=== PATIENT | male | born 1970 | race Caucasian/White ===

== ENCOUNTER 2016-06-14 20:20 | Emergency (ER) | payer BC ==
[~2016-06-14] VITALS: Ht 180.3 cm; Wt 110.7 kg
[~2016-06-14 20:20] MED LIST: BENTYL10 MG PO; LEVAQUIN500 MG PO; MIRALAX255 GM PO
[2016-06-14 21:05] LABS: HEMATOCRIT 43.6 % (38.0-50.0); MCH 30.9 PG (29.0-34.0); MCHC 33.5 G/DL (30.0-36.0); MCV 92.4 FL (86-99); MEAN PLAT.VOLUME 9.8 uM^3 (9.0-12.4); PLATELET COUNT 198 K/uL (156-360); RBC DIS.WIDTH-CV 13.8 % (11.8-14.6); RED BLOOD COUNT 4.72 M/uL (4.00-5.50); WHITE BLOOD COUNT 8.4 K/uL (4.1-10.2)
[2016-06-14 21:22] LABS: CHLORIDE 102 mEq/L (99-109); POTASSIUM 3.9 mEq/L (3.7-5.4); SODIUM 138 mEq/L (136-147)
[2016-06-14 21:24] LABS: GLUCOSE 107 mg/dL (70-99)
[2016-06-14 21:26] LABS: ANION GAP 9 MEQ/L (2-14); TOTAL BILIRUBIN 0.9 mg/dL (0.0-1.0)
[2016-06-14 21:28] LABS: ALKALINE PHOSPHATASE 57 IU/L (3-129); GFR ESTIMATE (CALCULATED) 58 mL/min/
[2016-06-14 21:29] LABS: UREA NITROGEN (BUN) 18 mg/dL (9-23)
[2016-06-14 21:31] LABS: LIPASE 27 U/L (1.0-51.0)
[2016-06-14 22:07] LABS: BILIRUBIN NEGATIVE; BLOOD NEGATIVE; COLOR YELLOW ((YELLOW)); GLUCOSE (STRIP) NEGATIVE; KETONES NEGATIVE; LEUKOCYTES NEGATIVE; NITRITE NEGATIVE; PROTEIN (STRIP) NEGATIVE; SPECIFIC GRAVITY 1.019 (1.000-1.030); UROBILINOGEN 0.2 MG/DL (0.2-1.0)
[2016-06-14 22:27] LABS: ADD MIUA? NO; UCUL ADDED? NO
[2016-06-14] MEDS ORDERED: METHOTREXATE2.5 MG PO (22:43)
[2016-06-14] MEDS ORDERED: COLACE100 MG PO (22:43)
[2016-06-14] MEDS ORDERED: LEVOTHYROXINE112 MCG PO (22:43)
[2016-06-15 00:58] VITALS: BP 142/88
== END 2016-06-15 00:59 | disposition short-term general hospital (02) ==
LOC: EME 20:20
PROVIDERS: Physician Assistant
DX: R19.00 Intra-abdominal and pelvic swelling, mass and lump, unspecified site (principal); R10.9 Unspecified abdominal pain; M06.9 Rheumatoid arthritis, unspecified; E03.9 Hypothyroidism, unspecified
CPT/HCPCS: 74177; 80053; 81003; 83690; 85027; 99281; 99285; J0744; J2270; J2405; J7030; S0030